=== PATIENT | male | born 1940 | race Caucasian/White ===

== ENCOUNTER 2019-02-19 08:40 | Outpatient (CLI) | payer MEDICARE, BC ==
--- NOTE | 2019-02-19 09:24 | ULT ---
ULTRASOUND RETROPERITONEUM COMPLETE: (RENAL) DATE: 02/19/2019. HISTORY: An 78-year-old male with stage II chronic kidney disease. ICD-10: N18.2. FINDINGS: The right kidney measures 12.5 x 5 x 6 cm. The left kidney measures 12 x 5 x 6.5 cm. Both kidneys h ave decreased cortical thickness. Renal cortical echogenicity is normal. There is no hydronephrosis. Cursory images of the urinary bladder demonstrate no gross abnormality. IMPRESSION: 1. No hydronephrosis. 2. Renal cortical thinning, typical for this age group. jn[] POS: OFF
== END 2019-02-19 08:41 | disposition home or self-care (01) ==
LOC: BICULT 08:40
PROVIDERS: ATTEND Internal Medicine Nephrology
DX: N18.2 Chronic kidney disease, stage 2 (mild) (principal); N28.89 Other specified disorders of kidney and ureter
CPT/HCPCS: 76770

== ENCOUNTER 2022-09-10 07:59 | Outpatient (CLI) | payer MEDICARE, BC | END 2022-09-10 08:00 | disposition home or self-care (01) | LOC: RAD 07:59 | PROVIDERS: ATTEND Family Medicine | DX: M25.532 Pain in left wrist (principal); M79.89 Other specified soft tissue disorders ==